=== PATIENT | female | born 1965 | race Caucasian/White ===

== ENCOUNTER 2016-07-31 03:00 | Emergency (ER) | payer OTHER ==
--- NOTE | 2016-07-31 05:30 | ED ORDER SUMMARY ---
..... Patient: TAMIKO JOHANSEN OrderSheet [facility] VisitID: [id number] [place] [address] 51y, F Registration Date/Time: 07/31/2016 ORDER SHEET Weight: 61.2 kg (stated) Allergies: No Known Drug Allergy GENERAL ORDERS: CT Abd/Pel w Cont (No) (N/A) Urgent (03:33 07/31/2016 Lulu Randolph) (Ack 3:35 Brandi ER Probate Paralegal) (4:25 Justin) CBC w Diff Urgent (03:07/31/2016 Lulu Randolph) (Ack 3:35 Brandi ER Probate Paralegal) (3:45 JBullard R.N.) CMP Urgent (03:07/31/2016 Lulu Randolph) (Ack 3:35 Brandi ER Probate Paralegal) (3:45 Albertoard R.N.) UA-Culture if indicated Urgent (03:07/31/2016 Lulu Randolph) (Ack 3:35 Brandi ER Probate Paralegal) (3:45 JBullard R.N.) Lipase Urgent (03:07/31/2016 Lulu Randolph) (Ack 3:35 Brandi ER Probate Paralegal) (3:45 JBullard R.N.) Urine Urgent (03:07/31/2016 Lulu Randolph) (Ack 3:35 Brandi ER Probate Paralegal) (3:45 JBullard R.N.) MEDICATION ORDERS: IV FLUIDS: Zofran IV 4 mg (NOW) (03:07/31/2016 Lulu Randolph) (3:53 JANEEullshannan R.N.) IV Saline Lock (03:07/31/2016 Lulu Randolph) (3:45 JANEEullshannan R.N.) IV NS : initial bolus 1000 mL (1000 mL/hr), then none - for X1 (NOW) (03:33 07/31/2016 Lulu Randolph) (3:52 JBullard R.N.) Morphine IV 2 mg (HIGH ALERT MEDICATION, NOW) (03:46 07/31/2016 Lulu Randolph) (3:53 JBullard R.N.) ORDER SHEET NOTES: [Electronically signed by Israel Tyler R.N. (05:49 07/31/2016)] [Electronically signed by Jama Jurado Dr. (21:43 08/06/2016)] [Electronically locked/signed by Israel Tyler R.N. (05:49 07/31/2016)]
--- NOTE | 2016-07-31 05:30 | ED NURSING NOTES ---
Clinical Report - Nurses [facility] [address] [place] [address] 07/31/2016 3:00 Patient: TAMIKO JOHANSEN TRIAGE Triage time 0308. Acuity: LEVEL 3. Chief Complaint: ABDOMINAL PAIN and NAUSEA and (back pain). --03:14 Israel Tyler R.N. 03:08 07/31/16. BP: 124/95. HR: 72. RR: 16. O2 saturation: 97%. Temp: 97 F. Pain level now 10/04. --03:14 Israel Tyler R.N. Weight: 61.2 kg stated. Height/Length: 65 inches Per Patient. BMI: 22.5. --03:13 Israel Tyler R.N. Medications None. --03:11 Israel Tyler R.N. Allergies No Known Drug Allergy. --03:11 Israel Tyler R.N. History Arrived by private vehicle. Historian: patient. Onset. (tuesday evening). She has had nausea. ( last bm tue). Last oral intake by patient was (just prior to arrival). 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 PAST MEDICAL HX: Last normal menstrual period- October. FALL RISK ASSESSMENT: Fall risk assessment completed. No fall risk identified. NUTRITIONAL RISK ASSESSMENT: The nutritional risk assessment revealed no deficiencies. FUNCTIONAL ASSESSMENT: Functional assessment: no impairments noted. LEARNING NEEDS ASSESSMENT: The learning needs assessment revealed no barriers. SKIN INTEGRITY ASSESSMENT: Skin integrity risk assessment completed. No skin integrity risk identified. --03:14 Israel Tyler R.N. PROBLEMS: Degenerative disk disease. Back Pain. Anemia. Vertigo. Paresthesia. Syncope. Immunizations. LNMP - Last Normal Menstrual Period. Pulmonary Embolism. --03:11 Israel Tyler R.N. ADDITIONAL SURGERIES: Neck Surgery. Tonsillectomy. --03:11 Israel Tyler R.N. Interventions ID band on patient. --03:14 Israel Tyler R.N. PHYSICAL ASSESSMENT Ambulatory to room. GENERAL / NEURO / PSYCH: Alert. Oriented X 4. Appears in no acute distress. HEENT: Mucous membranes are pink. RESPIRATORY: Respirations not labored. Breath sounds within normal limits. CVS: Normal sinus rhythm noted. Capillary refill less than 2 seconds. GI / : Abdomen soft. SKIN: Skin is warm and dry. --03:15 Israel Tyler R.N. NURSING PROGRESS NOTES Head of bed elevated. Reassurance given. Patient identifiers checked. Call light placed in reach. Bed placed in lowest position. Brakes of bed on. --03:15 Israel Tyler R.N. 03:45 07/31/2016 Site #1 started via IV in the right forearm with an 20g angiocath; two attempts. Blood drawn: rainbow set. Labeled in the presence of the patient and sent to the lab. Saline lock flushed with saline. --03:45 Israel Tyler R.N. 03:52 07/31/2016 Started bag #1 1000 mL IV Fluids IV NS (Saline); bolus of 1000 mL wide open via site #1. Allergies verified and confirmed 5 rights. IV patency established. IV site checked: no pain, redness, or swelling. IV flushed thoroughly pre- and post-medication administration. --03:52 Israel Tyler R.N. 03:53 07/31/2016 Morphine IVP 2 mg given. via site #1. 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 IV patency established. IV site checked: no pain, redness, or swelling. IV flushed thoroughly pre- and post-medication administration. --03:53 Israel Tyler R.N. 03:53 07/31/2016 Zofran (Ondansetron HCl) IVP 4 mg given. via site #1. Allergies verified and confirmed 5 rights. IV patency established. IV site checked: no pain, redness, or swelling. IV flushed thoroughly pre- and post-medication administration. --03:53 Israel Tyler R.N. DISPOSITION / DISCHARGE Departure time: 0540. No learning barriers present. Discharge instructions provided and reviewed with the patient and spouse. Reviewed warnings. Reviewed medication(s). Treatments reviewed. Reviewed referrals. Patient and spouse verbalized understanding. Written instructions provided in Burundian. The patient was discharged by the physician. She was discharged home and accompanied by spouse. She left the Emergency Department ambulatory and via private vehicle. Spouse driving. --05:48 Israel Tyler R.N. 05:48 07/31/16. BP: 124/94. HR: 77. RR: 14. O2 saturation: 98%. Temp: 98 F. Pain level now 09/03. --05:48 Israel Tyler R.N. Condition at departure: improved. --05:49 Israel Tyler R.N. Locked/Released at 07/31/2016 5:49 by Israel Tyler R.N.
--- NOTE | 2016-07-31 05:30 | ED NURSING NOTES ---
Clinical Report - Nurses [facility] [address] [place] [address] 07/31/2016 3:00 Patient: TAMIKO JOHANSEN TRIAGE Triage time 0308. Acuity: LEVEL 3. Chief Complaint: ABDOMINAL PAIN and NAUSEA and (back pain). --03:14 Israel Tyler R.N. 03:08 07/31/16. BP: 124/95. HR: 72. RR: 16. O2 saturation: 97%. Temp: 97 F. Pain level now 10/04. --03:14 Israel Tyler R.N. Weight: 61.2 kg stated. Height/Length: 65 inches Per Patient. BMI: 22.5. --03:13 Israel Tyler R.N. Medications None. --03:11 Israel Tyler R.N. Allergies No Known Drug Allergy. --03:11 Israel Tyler R.N. History Arrived by private vehicle. Historian: patient. Onset. (tuesday evening). She has had nausea. ( last bm tue). Last oral intake by patient was (just prior to arrival). 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 PAST MEDICAL HX: Last normal menstrual period- October. FALL RISK ASSESSMENT: Fall risk assessment completed. No fall risk identified. NUTRITIONAL RISK ASSESSMENT: The nutritional risk assessment revealed no deficiencies. FUNCTIONAL ASSESSMENT: Functional assessment: no impairments noted. LEARNING NEEDS ASSESSMENT: The learning needs assessment revealed no barriers. SKIN INTEGRITY ASSESSMENT: Skin integrity risk assessment completed. No skin integrity risk identified. --03:14 Israel Tyler R.N. PROBLEMS: Degenerative disk disease. Back Pain. Anemia. Vertigo. Paresthesia. Syncope. Immunizations. LNMP - Last Normal Menstrual Period. Pulmonary Embolism. --03:11 Israel Tyler R.N. ADDITIONAL SURGERIES: Neck Surgery. Tonsillectomy. --03:11 Israel Tyler R.N. Interventions ID band on patient. --03:14 Israel Tyler R.N. PHYSICAL ASSESSMENT Ambulatory to room. GENERAL / NEURO / PSYCH: Alert. Oriented X 4. Appears in no acute distress. HEENT: Mucous membranes are pink. RESPIRATORY: Respirations not labored. Breath sounds within normal limits. CVS: Normal sinus rhythm noted. Capillary refill less than 2 seconds. GI / : Abdomen soft. SKIN: Skin is warm and dry. --03:15 Israel Tyler R.N. NURSING PROGRESS NOTES Head of bed elevated. Reassurance given. Patient identifiers checked. Call light placed in reach. Bed placed in lowest position. Brakes of bed on. --03:15 Israel Tyler R.N. 03:45 07/31/2016 Site #1 started via IV in the right forearm with an 20g angiocath; two attempts. Blood drawn: rainbow set. Labeled in the presence of the patient and sent to the lab. Saline lock flushed with saline. --03:45 Israel Tyler R.N. 03:52 07/31/2016 Started bag #1 1000 mL IV Fluids IV NS (Saline); bolus of 1000 mL wide open via site #1. Allergies verified and confirmed 5 rights. IV patency established. IV site checked: no pain, redness, or swelling. IV flushed thoroughly pre- and post-medication administration. --03:52 Israel Tyler R.N. 03:53 07/31/2016 Morphine IVP 2 mg given. via site #1. 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 IV patency established. IV site checked: no pain, redness, or swelling. IV flushed thoroughly pre- and post-medication administration. --03:53 Israel Tyler R.N. 03:53 07/31/2016 Zofran (Ondansetron HCl) IVP 4 mg given. via site #1. Allergies verified and confirmed 5 rights. IV patency established. IV site checked: no pain, redness, or swelling. IV flushed thoroughly pre- and post-medication administration. --03:53 Israel Tyler R.N. DISPOSITION / DISCHARGE Departure time: 0540. No learning barriers present. Discharge instructions provided and reviewed with the patient and spouse. Reviewed warnings. Reviewed medication(s). Treatments reviewed. Reviewed referrals. Patient and spouse verbalized understanding. Written instructions provided in Barbadian. The patient was discharged by the physician. She was discharged home and accompanied by spouse. She left the Emergency Department ambulatory and via private vehicle. Spouse driving. --05:48 Israel Tyler R.N. 05:48 07/31/16. BP: 124/94. HR: 77. RR: 14. O2 saturation: 98%. Temp: 98 F. Pain level now 09/03. --05:48 Israel Tyler R.N. Condition at departure: improved. --05:49 Israel Tyler R.N. Locked/Released at 07/31/2016 5:49 by Israel Tyler R.N.
--- NOTE | 2016-07-31 05:30 | ED ORDER SUMMARY ---
..... Patient: TAMIKO JOHANSEN OrderSheet [facility] VisitID: [id number] [place] [address] 51y, F Registration Date/Time: 07/31/2016 ORDER SHEET Weight: 61.2 kg (stated) Allergies: No Known Drug Allergy GENERAL ORDERS: CT Abd/Pel w Cont (No) (N/A) Urgent (03:33 07/31/2016 Lulu Randolph) (Ack 3:35 Branid ER Gear Cutting Machine Operator) (4:25 Justin) CBC w Diff Urgent (03:07/31/2016 Lulu Randolph) (Ack 3:35 Brandi ER Gear Cutting Machine Operator) (3:45 JBullard R.N.) CMP Urgent (03:07/31/2016 Lulu Randolph) (Ack 3:35 Brandi ER Gear Cutting Machine Operator) (3:45 Albertoard R.N.) UA-Culture if indicated Urgent (03:07/31/2016 Lulu Randolph) (Ack 3:35 Brandi ER Gear Cutting Machine Operator) (3:45 JBullard R.N.) Lipase Urgent (03:07/31/2016 Lulu Randolph) (Ack 3:35 Brandi ER Gear Cutting Machine Operator) (3:45 JBullard R.N.) Urine Urgent (03:07/31/2016 Lulu Randolph) (Ack 3:35 Brandi ER Gear Cutting Machine Operator) (3:45 JBullard R.N.) MEDICATION ORDERS: IV FLUIDS: Zofran IV 4 mg (NOW) (03:07/31/2016 Lulu Randolph) (3:53 JANEEullshannan R.N.) IV Saline Lock (03:07/31/2016 Lulu Randolph) (3:45 JANEEullshannan R.N.) IV NS : initial bolus 1000 mL (1000 mL/hr), then none - for X1 (NOW) (03:33 07/31/2016 Lulu Randolph) (3:52 JBullard R.N.) Morphine IV 2 mg (HIGH ALERT MEDICATION, NOW) (03:46 07/31/2016 Lulu Randolph) (3:53 JBullard R.N.) ORDER SHEET NOTES: [Electronically signed by Israel Tyler R.N. (05:49 07/31/2016)] [Electronically signed by Jama Jurado Dr. (21:43 08/06/2016)] [Electronically locked/signed by Israel Tyler R.N. (05:49 07/31/2016)]
--- NOTE | 2016-07-31 05:30 | ED CLINICAL REPORT ---
Clinical Report - Physicians/Mid Levels [facility] [address] [place] [address] 07/31/2016 3:00 Patient: TAMIOK JOHANSEN Arrived- By private vehicle. Historian- patient. HISTORY OF PRESENT ILLNESS Chief Complaint: ABDOMINAL PAIN. This started past few days and is still present (staying the same). It was abrupt in onset and has been waxing/waning but is not gone now. At its maximum, severity described as moderate. When seen in the E.D., severity described as moderate. Modifying factors- worsened by movement. Relieved by rest. It is described as sharp and cramping and it is described as located in the right lower quadrant and radiating to the low back. The patient has had nausea and vomiting. No loss of appetite or diarrhea. No additional abdominal pain. (reports no abnormal discharge, rashes, or lesions.). No recent travel. Similar symptoms previously: None. Recent medical care: Not recently seen/assessed. REVIEW OF SYSTEMS Last normal menstrual period- several months ago. Not sure if she is going through menopause. No black stools, bloody stools or fever. All systems otherwise negative, except as recorded above. PAST HISTORY See nurses notes. Medications: None. Allergies: No Known Drug Allergy. SOCIAL HISTORY Never smoker. No alcohol use or drug use. No recent travel. Is a local resident. FAMILY HISTORY Negative. ADDITIONAL NOTES The nursing notes have been reviewed. PHYSICAL EXAM Vital Signs: 07/31/2016 03:08 BP: 124/95. HR: 72. RR: 16. O2 saturation: 97%. Temp: 97 F. Hypertensive. Oxygen saturation normal. Appearance: Alert. Oriented X3. No acute distress. CVS: Normal heart rate and rhythm. Heart sounds normal. Pulses normal. Respiratory: No respiratory distress. Breath sounds normal. Chest nontender. Abdomen: Soft and nontender. Bowel sounds normal. No organomegaly. No mass. Back: Normal inspection. Skin: Skin warm and dry. Normal skin color. No rash. Normal skin turgor. Extremities: Extremities exhibit normal ROM. No lower extremity edema. Neuro: Oriented X 3. No motor deficit. No sensory deficit. Reflexes normal. LABS, X-RAYS, AND EKG Abdominal CT: no appendicitis. right ovarian cyst. negative exam. Study type: abdomen and pelvis. Abdominal CT performed with IV contrast. The study was independently viewed by me and interpreted by the radiologist. The study was discussed with the radiologist (via fax). Laboratory Tests: UA-Culture if indicated: (SALEEM: 07/31/2016 03:30) ( [facility] 07/31/2016 03:53) Final results Test Result Flag Units (Reference) URINE COLOR YELLOW URINE APPEARANCE CLEAR URINE GLUCOSE NEGATIVE (NEGATIVE) URINE BILIRUBIN NEGATIVE (NEGATIVE) URINE KETONE NEGATIVE (NEGATIVE) URINE SPECIFIC GRAVITY <= 1.005 L (1.010-1.030) URINE PH 6.0 (5.0-8.0) URINE PROTEIN NEGATIVE (NEGATIVE) URINE UROBILINOGEN 0.2 EU/dL (0.2-1.0) URINE NITRITE NEGATIVE (NEGATIVE) URINE BLOOD NEGATIVE (NEGATIVE) URINE LEUK ESTERASE NEGATIVE (NEGATIVE) URINE RBC 0-1 rbc/hpf (0-1) URINE WBC 0-1 wbc/hpf (0-1) URINE EPITHELIAL CELLS 0-1 EPI/hpf (0-5) URINE BACTERIA NONE SEEN (NONE SEEN) URINE COMMENT CULT NOT INDICATED URINE CULTURES ARE SET-UP BASED ON THE FOLLOWING CRITERIA:POSITIVE NITRITEPOSITIVE LEUKOCYTE ESTERASEGREATER THAN 10 WHITE BLOOD CELLSMODERATE (2+) OR GREATER BACTERIA Urine: (SALEEM: 07/31/2016 03:30) ( [facility] 07/31/2016 03:53) Final results Test Result Flag Units (Reference) URINE NEGATIVE CBC w Diff: (SALEEM: 07/31/2016 03:30) ( [facility] 07/31/2016 03:53) Final results Test Result Flag Units (Reference) WHITE BLOOD COUNT 6.4 K/uL (4.5-11.5) RED BLOOD COUNT 4.29 M/uL (4.00-5.20) HEMOGLOBIN 11.8 L gm/dL (12.0-16.0) HEMATOCRIT 36.1 % (36.0-46.0) MEAN CELL VOLUME 84 fL (80-100) MEAN CORPUSCULAR HGB 28 pg (26-34) MEAN CORPUSCULAR HGB CONC 33 g/dL (31-37) RED CELL DISTRIBUTION WIDTH 12.9 % (11.6-14.8) PLATELET COUNT 236 K/uL (150-400) NEUTROPHIL % 51.7 % (50-75) LYMPH % 35.7 % (25-40) MONO % 9.8 % (3-14) EOSINOPHIL % 2.2 % (0-4) BASOPHIL % 0.6 % (0-2) CMP: (SALEEM: 07/31/2016 03:30) ( [facility] 07/31/2016 04:02) Final results Test Result Flag Units (Reference) GLUCOSE 119 H mg/dL (70-110) BUN 6 L mg/dL (7-18) CREATININE 0.7 mg/dL (0.6-1.3) Estimated GFR >60 mL/min Estimated GFR- >60 mL/min Note: Persistent reduction over 3 months in eGFR<60 mL/min/1.73 m2 defines CKD. Patients with eGFR values>=60 mL/min/1.73 m2 may also have CKD if evidence ofpersistent proteinuria. Additional information may be foundat www.kidney.org. SODIUM 142 mmol/L (136-145) POTASSIUM 3.8 mmol/L (3.5-5.1) CHLORIDE 106 mmol/L (98-107) CARBON DIOXIDE 23 mmol/L (21-32) CALCIUM 8.5 mg/dL (8.5-10.1) TOTAL PROTEIN 6.6 g/dL (6.4-8.2) ALBUMIN 3.4 g/dL (3.3-5.0) BILIRUBIN, TOTAL 0.4 mg/dL (0.0-1.0) ALKALINE PHOSPHATASE 79 U/L (46-116) AST (SGOT) 24 U/L (15-37) ALT (SGPT) 31 U/L (12-78) LIPASE 94 U/L (73-393) . PROGRESS AND PROCEDURES Course of Care: The yara is a pleasant 51 yo female who presents for evaluation fo right lower quadrant abdominal pain. DDx includes appy, ectopic , renal colic, or UTI. Exam is reassuring. Will order CT of the abdomen and pelvis for appy eval. Patient initially declined offers of pain medication however asked RN when she changed her mind. Patient Agreeable to the treatment and plan. Work up does not show any acute abnormalities. UA does not show signs of UTI, liver enzymes and lipase normal, test in negative. Patient does have a ovarian cyst on the right. Does not appear to be enlarged. DO not fee this is torsion. Patient is also not in a significant amount of pain and feels much better. Dicussed with patient work up and need of MINE TECHNICIAN follow up for the cyst, diagnosis, home care, follow up, and return precautions. All questions answered. patient expressed understanding of these instructions and was agreeable to them. Patients repeat exam continues to be reassuring. Appy precautions provided. All questions answered. Patient expressed understanding of these instructions and was agreeable to them. Patient evaluated prior to discharge. Continues to be doing well. Exam reassuring. Disposition: Discharged. Condition: good. CLINICAL IMPRESSION Acute right lower quadrant abdominal pain. 07/31/2016 03:08 BP: 124/95. HR: 72. RR: 16. O2 saturation: 97%. Temp: 97 F. Blood pressure normal. Oxygen saturation normal. Single simple right ovarian cyst. Essential hypertension. INSTRUCTIONS Warnings: GENERAL WARNINGS: Return or contact your physician immediately if your condition worsens or changes unexpectedly, if not improving as expected, or if other problems arise. SPECIFICALLY, return if you develop pain in the abdomen, fever, vomiting, the inability to keep fluids down, blood in vomitus, blood in diarrhea, fainting or lightheadedness. Your Current Medications: CONTINUE TAKING THE FOLLOWING MEDICATIONS: None*. Prescription Medications: Zofran (orally disintegrating tablets) 4 mg: take 1 orally every 8 hours as needed for nausea and vomiting. Dispense ten (10). No refill. Substitution is permissible. Motrin 600 mg tablets: take 1 tablet orally every 6 hours as needed for pain, stiffness or swelling. Dispense thirty (30). No refill. Substitution is permissible. Zahl 5 mg / 325 mg tablets: take 1 orally every 6 hours as needed for pain. Dispense ten (10). No refill. Substitution is permissible. Follow-up: Return to the emergency department as needed. Follow up with your doctor in three days. Reason for referral: recheck today's concerns. Summary of care provided to patient via paper. Screening today revealed the patient's blood pressure to be in the hypertensive range. The patient should follow up with a primary care provider for blood pressure management. Understanding of the discharge instructions verbalized by patient. (Electronically signed by Jama Jurado Dr. 08/06/2016 21:43)
--- NOTE | 2016-07-31 09:27 | DIAGNOSTIC IMAGING REPORT ---
PROCEDURE: CT ABD/PELVIS WITH CONTRAST CLINICAL INDICATION: Right lower quadrant pain, initial encounter TECHNIQUE: 100 ml of Isovue 300 were injected intravenously and axial images were obtained of the entire abdomen and pelvis with sagittal and coronal reformations. COMPARISON: None. FINDINGS: ABDOMEN: Lung base are clear. Heart size is normal. Liver, gallbladder, pancreas, spleen, adrenal glands, kidneys and abdominal aorta are normal. Moderate stool. PELVIS: 2 cm right ovarian cyst. Uterus and bladder are normal. Appendix not visualized but no evidence of acute appendicitis. Moderate L5-S1 disc space narrowing. IMPRESSION: 1. Moderate stool 2. 2 cm right ovarian cyst 3. Preliminary results submitted by Dr. Augustin, [facility] radiology. All CT scans at this facility use dose modulation, iterative reconstruction, and/or weight-based dosing when appropriate to reduce radiation dose to as low as reasonably achievable.
--- NOTE | 2016-07-31 09:27 | DIAGNOSTIC IMAGING REPORT ---
PROCEDURE: CT ABD/PELVIS WITH CONTRAST CLINICAL INDICATION: Right lower quadrant pain, initial encounter TECHNIQUE: 100 ml of Isovue 300 were injected intravenously and axial images were obtained of the entire abdomen and pelvis with sagittal and coronal reformations. COMPARISON: None. FINDINGS: ABDOMEN: Lung base are clear. Heart size is normal. Liver, gallbladder, pancreas, spleen, adrenal glands, kidneys and abdominal aorta are normal. Moderate stool. PELVIS: 2 cm right ovarian cyst. Uterus and bladder are normal. Appendix not visualized but no evidence of acute appendicitis. Moderate L5-S1 disc space narrowing. IMPRESSION: 1. Moderate stool 2. 2 cm right ovarian cyst 3. Preliminary results submitted by Dr. Augustin, [facility] radiology. All CT scans at this facility use dose modulation, iterative reconstruction, and/or weight-based dosing when appropriate to reduce radiation dose to as low as reasonably achievable.
--- NOTE | 2016-08-06 21:43 | ED MAR SUMMARY ---
..... Medication Administration Record [facility] [address] [place] [address] Patient: TAMIKO JOHANSEN Visit ID: [id number] 51y, F Weight: 61.2 kg Height/Length: 65 in BMI: 22.5 ALLERGIES: No Known Drug Allergy Start 03:52 07/31/2016 Israel Tyler R.N. Medication Administered: IV NS (SALINE), Dose: IV Fluids, Bolus: 1000 mL wide open, Dispensed: 1000 mL bag, Site: #1 right forearm. Medication Ordered: IV NS : initial bolus 1000 mL (1000 mL/hr), then none - for X1 (NOW). Given 03:53 07/31/2016 Israel Tyler R.N. Medication Administered: MORPHINE [IVP], Dose: 2 mg IVP, Site: #1 right forearm. Medication Ordered: Morphine IV 2 mg (HIGH ALERT MEDICATION, NOW). Given 03:53 07/31/2016 Israel Tyler R.N. Medication Administered: ZOFRAN [IVP] (ONDANSETRON HCL), Dose: 4 mg IVP, Site: #1 right forearm. Medication Ordered: Zofran IV 4 mg (NOW).
--- NOTE | 2016-08-06 21:43 | ED MED RECONCILIATION SUMMARY ---
Patient: TAMIKO JOHANSEN Medication Reconciliation Report [facility] VisitID: [id number] [place] [address] 51y, F Registration Date/Time: 07/31/2016 Weight: 61.2 kg Height/Length: 65 in. BMI: 22.5 ALLERGIES: No Known Drug Allergy The patient's Home Medications are listed below: NONE. The source(s) of the original Home Medication information: Not obtained. The following Medications were given to the patient in the Emergency Department: IV NS IV Fluids bolus 1000 mL wide open, administered: 07/31/2016 3:52:00 AM Morphine [IVP] IVP 2 mg, administered: 07/31/2016 3:53:00 AM Zofran [IVP] IVP 4 mg, administered: 07/31/2016 3:53:00 AM The following Medications were prescribed to the patient: Zofran (orally disintegrating tablets) 4 mg: take 1 orally every 8 hours as needed for nausea and vomiting. Dispense ten (10). No refill. Substitution is permissible. -- Jama Jurado Dr. Motrin 600 mg tablets: take 1 tablet orally every 6 hours as needed for pain, stiffness or swelling. Dispense thirty (30). No refill. Substitution is permissible. -- Jama Jurado Dr. [place] 5 mg / 325 mg tablets: take 1 orally every 6 hours as needed for pain. Dispense ten (10). No refill. Substitution is permissible. -- Jama Jurado Dr.
--- NOTE | 2016-08-06 21:43 | ED MED RECONCILIATION SUMMARY ---
Patient: TAMIKO JOHANSEN Medication Reconciliation Report [facility] VisitID: [id number] [place] [address] 51y, F Registration Date/Time: 07/31/2016 Weight: 61.2 kg Height/Length: 65 in. BMI: 22.5 ALLERGIES: No Known Drug Allergy The patient's Home Medications are listed below: NONE. The source(s) of the original Home Medication information: Not obtained. The following Medications were given to the patient in the Emergency Department: IV NS IV Fluids bolus 1000 mL wide open, administered: 07/31/2016 3:52:00 AM Morphine [IVP] IVP 2 mg, administered: 07/31/2016 3:53:00 AM Zofran [IVP] IVP 4 mg, administered: 07/31/2016 3:53:00 AM The following Medications were prescribed to the patient: Zofran (orally disintegrating tablets) 4 mg: take 1 orally every 8 hours as needed for nausea and vomiting. Dispense ten (10). No refill. Substitution is permissible. -- Jama Jurado Dr. Motrin 600 mg tablets: take 1 tablet orally every 6 hours as needed for pain, stiffness or swelling. Dispense thirty (30). No refill. Substitution is permissible. -- Jama Jurado Dr. Reeves 5 mg / 325 mg tablets: take 1 orally every 6 hours as needed for pain. Dispense ten (10). No refill. Substitution is permissible. -- Jama Jurado Dr.
--- NOTE | 2016-08-06 21:43 | ED MAR SUMMARY ---
..... Medication Administration Record [facility] [address] [place] [address] Patient: TAMIKO JOHANSEN Visit ID: [id number] 51y, F Weight: 61.2 kg Height/Length: 65 in BMI: 22.5 ALLERGIES: No Known Drug Allergy Start 03:52 07/31/2016 Israel Tyler R.N. Medication Administered: IV NS (SALINE), Dose: IV Fluids, Bolus: 1000 mL wide open, Dispensed: 1000 mL bag, Site: #1 right forearm. Medication Ordered: IV NS : initial bolus 1000 mL (1000 mL/hr), then none - for X1 (NOW). Given 03:53 07/31/2016 Israel Tyler R.N. Medication Administered: MORPHINE [IVP], Dose: 2 mg IVP, Site: #1 right forearm. Medication Ordered: Morphine IV 2 mg (HIGH ALERT MEDICATION, NOW). Given 03:53 07/31/2016 Israel Tyler R.N. Medication Administered: ZOFRAN [IVP] (ONDANSETRON HCL), Dose: 4 mg IVP, Site: #1 right forearm. Medication Ordered: Zofran IV 4 mg (NOW).
--- NOTE | 2016-08-06 21:43 | ED DISCHARGE INSTRUCTIONS ---
Patient: TAMIKO JOHANSEN General Instructions [facility] VisitID: [id number] [place] [address] 51y, F Registration Date/Time: 07/31/2016 Acute right lower quadrant abdominal pain. 07/31/2016 03:08 BP: 124/95. HR: 72. RR: 16. O2 saturation: 97%. Temp: 97 F. Blood pressure normal. Oxygen saturation normal. Single simple right ovarian cyst. Essential hypertension. INSTRUCTIONS Warnings: GENERAL WARNINGS: Return or contact your physician immediately if your condition worsens or changes unexpectedly, if not improving as expected, or if other problems arise. SPECIFICALLY, return if you develop pain in the abdomen, fever, vomiting, the inability to keep fluids down, blood in vomitus, blood in diarrhea, fainting or lightheadedness. Your Current Medications: CONTINUE TAKING THE FOLLOWING MEDICATIONS: None*. Prescription Medications: Zofran (orally disintegrating tablets) 4 mg: take 1 orally every 8 hours as needed for nausea and vomiting. Dispense ten (10). No refill. Substitution is permissible. Motrin 600 mg tablets: take 1 tablet orally every 6 hours as needed for pain, stiffness or swelling. Dispense thirty (30). No refill. Substitution is permissible. Talihina 5 mg / 325 mg tablets: take 1 orally every 6 hours as needed for pain. Dispense ten (10). No refill. Substitution is permissible. Follow-up: Return to the emergency department as needed. Follow up with your doctor in three days. Reason for referral: recheck today's concerns. Summary of care provided to patient via paper. Screening today revealed the patient's blood pressure to be in the hypertensive range. The patient should follow up with a primary care provider for blood pressure management. Understanding of the discharge instructions verbalized by patient. ADDITIONAL INFORMATION Abdominal Pain, Unknown Cause (Female) The exact cause of your abdominal (stomach) pain is not certain. This does not mean that this is something to worry about, or the right tests were not done. Everyone likes to know the exact cause of the problem, but sometimes with abdominal pain, there is no clear-cut cause, and this could be a good thing. The good news is that your symptoms can be treated, and you will feel better. Your condition does not seem serious now; however, sometimes the signs of a serious problem may take more time to appear. For this reason,it is important for you to watch for any new symptoms, problems,or worsening of your condition. Over the next few days, the abdominal pain may come and go, or be continuous. Other common symptoms can include nausea and vomiting. Sometimes it can be difficult to tell if you feel nauseous, you may just feel bad and not associate that feeling with nausea. Constipation, diarrhea, and a fever may go along with the pain. The pain may continue even if treated correctly over the following days. Depending on how things go, sometimes the cause can become clear and may require further or different treatment. Additional evaluations, medications, or tests may be needed. Home care Your health care provider may prescribe medications for pain, symptoms, or an infection. Follow the health care provider's instructions for taking these medications. General care Rest until your next exam. No strenuous activities. Try to find positions that ease discomfort. A small pillow placed on the abdomen may help relieve pain. Something warm on your abdomen (such as a heating pad) may help, but be careful not to burn yourself. Diet Do not force yourself to eat, especially if having cramps, vomiting, or diarrhea. Water is important so you do not get dehydrated. Soup may also be good. Sports drinks may also help, especially if they are not too acidic. Make sure you don't drink sugary drinks as this can make things worse. Take liquids in small amounts. Do not guzzle them. Caffeine sometimes makes the pain and cramping worse. Avoid dairy products if you have vomiting or diarrhea. Don't eat large amounts at a time. Wait a few minutes between bites. Eat a diet low in fiber (called a low-residue diet). Foods allowed include refined breads, white rice, fruit and vegetable juices without pulp, tender meats. These foods will pass more easily through the intestine. Avoid whole-grain foods, whole fruits and vegetables, meats, seeds and nuts, fried or fatty foods, dairy, alcohol and spicy foods until your symptoms go away. Follow-up care Follow up with your health care provider as instructed, or if your pain does not begin to improve in the next 24 hours. When to seek medical care Seek prompt medical care if any of the following occur: Pain gets worse or moves to the right lower abdomen New or worsening vomiting or diarrhea Swelling of the abdomen Unable to pass stool for more than three days Fever of 100.4F (38C) or higher, or as directed by your healthcare provider. Blood in vomit or bowel movements (dark red or black color) Jaundice (yellow color of eyes and skin) Weakness, dizziness Chest, arm, back, neck or jaw pain Unexpected vaginal bleeding or missed period Call 911 Call emergency services if any of the following occur: Trouble breathing Confusion Fainting or loss of consciousness Rapid heart rate Seizure Ovarian Cyst The ovary is a small organ located on each side of the uterus. During each menstrual cycle a tiny egg sac forms in the ovary. If the egg is released but does not occur, this sac usually dissolves. Sometimes, the sac may fill with fluid. It then enlarges into a painful cyst. Usually the cyst will rupture or shrink on its own. In either case, the pain gradually goes away over the next 1-3 days. If the cyst does not shrink or rupture, it may cause continued pain. Home Care: Rest in bed and avoid heavy exertion until you are feeling better. Heat to the lower abdomen usually helps (heating pad or hot packs -- a small towel soaked in hot water). You may use acetaminophen (Tylenol) or ibuprofen (Motrin, Advil) to control pain, unless another pain medicine was prescribed. [NOTE: If you have chronic liver or kidney disease or ever had a stomach ulcer or GI bleeding, talk with your doctor before using these medicines.] Follow Up: See your doctor within the next 2-3 days if your pain doesnt improve. Otherwise, follow up with your doctor after your next period or as directed by our staff. Get Prompt Medical Attention if any of the following occur: Pain worsens or fails to respond to the above measures Fever of 100.4F (38C) or higher, or as directed by your healthcare provider Heavy vaginal bleeding (soaking one pad an hour for three hours) You feel weak or dizzy Fainting Passage of a pink or garza tissue with menstrual bleeding High Blood Pressure -- To Be Confirmed [No Tx] Your blood pressure was higher today than normal. Sometimes anxiety or pain can cause a temporary rise in blood pressure that later returns to normal. If your blood pressure is high on one measurement, this does not mean that you have hypertension (a chronic illness). However, you must have your blood pressure measured again within the next few days to find out if its still high. A normal blood pressure is 120/80 or less. The first (top) number is the "systolic" pressure. The second (bottom) number is the "diastolic" pressure. Hypertension exists when either the top number is 140 or higher, OR the bottom number is 90 or higher on repeated measurements. Blood pressure in the range of 120-140 (systolic) or 80-89 (diastolic) is considered "pre-hypertension". This means your are at risk for getting hypertension. You should have regular blood pressure checks to be sure your blood pressure is not rising. Home Care: Measure your blood pressure on 3 different days and write down the results. This can be done at your doctor's office or this facility. Some pharmacies and grocery stores offer automated blood pressure machines for your use. Follow Up: If your blood pressure is "high" (over 120/80) on 2 out of 3 days, you will need to follow up with your doctor for further evaluation and treatment. DO NOT PUT THIS OFF! Untreated high blood pressure increases the risk for heart attack, also known as acute myocardial infarction, or AMI, and stroke. It is a treatable condition. Get Prompt Medical Attention if any of the following occur: Chest pain or shortness of breath Severe headache Throbbing or rushing sound in the ears Nosebleed Sudden severe abdominal pain Extreme drowsiness, confusion or fainting Dizziness or vertigo (dizziness with spinning sensation) Weakness of an arm or leg or one side of the face Difficulty with speech or vision Ondansetron Oral disintegrating tablet What is this medicine? ONDANSETRON (on FUNMI se gideon) is used to treat nausea and vomiting caused by chemotherapy. It is also used to prevent or treat nausea and vomiting after surgery. How should I use this medicine? These tablets are made to dissolve in the mouth. Do not try to push the tablet through the foil backing. With dry hands, peel away the foil backing and gently remove the tablet. Place the tablet in the mouth and allow it to dissolve, then swallow. While you may take these tablets with water, it is not necessary to do so. Talk to your adjunct trainer regarding the use of this medicine in children. Special care may be needed. What side effects may I notice from receiving this medicine? Side effects that you should report to your doctor or health wound care specialist as soon as possible: allergic reactions like skin rash, itching or hives, swelling of the face, lips, or tongue breathing problems dizziness fast or irregular heartbeat feeling faint or lightheaded, falls fever and chills swelling of the hands and feet tightness in the chest Side effects that usually do not require medical attention (report to your doctor or health wound care specialist if they continue or are bothersome): constipation or diarrhea headache What may interact with this medicine? Do not take this medicine with any of the following medications: -apomorphine -cisapride -dofetilide -dronedarone -pimozide -thioridazine -ziprasidone This medicine may also interact with the following medications: -carbamazepine -phenytoin -rifampicin -tramadol -other medicines that prolong the QT interval (cause an abnormal heart rhythm) What if I miss a dose? If you miss a dose, take it as soon as you can. If it is almost time for your next dose, take only that dose. Do not take double or extra doses. Where should I keep my medicine? Keep out of the reach of children. Store between 2 and 30 degrees C (36 and 86 degrees F). Throw away any unused medicine after the expiration date. What should I tell my health care provider before I take this medicine? They need to know if you have any of these conditions: heart disease history of irregular heartbeat liver disease low levels of magnesium or potassium in the blood an unusual or allergic reaction to ondansetron, granisetron, other medicines, foods, dyes, or preservatives or trying to get breast-feeding What should I watch for while using this medicine? Check with your doctor or health wound care specialist as soon as you can if you have any sign of an allergic reaction. Ibuprofen Oral tablet What is this medicine? IBUPROFEN (eye BYOO proe fen) is a non-steroidal anti-inflammatory drug (NSAID). It is used for dental pain, fever, headaches or migraines, osteoarthritis, rheumatoid arthritis, or painful monthly periods. It can also relieve minor aches and pains caused by a cold, flu, or sore throat. How should I use this medicine? Take this medicine by mouth with a glass of water. Follow the directions on the prescription label. Take this medicine with food if your stomach gets upset. Try to not lie down for at least 10 minutes after you take the medicine. Take your medicine at regular intervals. Do not take your medicine more often than directed. A special MedGuide will be given to you by the pharmacist with each prescription and refill. Be sure to read this information carefully each time. Talk to your adjunct trainer regarding the use of this medicine in children. Special care may be needed. What side effects may I notice from receiving this medicine? Side effects that you should report to your doctor or health wound care specialist as soon as possible: allergic reactions like skin rash, itching or hives, swelling of the face, lips, or tongue black or bloody stools, blood in the urine or in vomit breathing problems changes in vision chest pain general ill feeling or flu-like symptoms nausea or vomiting redness, blistering, peeling or loosening of the skin, including inside the mouth slurred speech or weakness on one side of the body stomach pain unexplained weight gain or swelling unusually weak or tired yellowing of eyes or skin Side effects that usually do not require medical attention (report to your doctor or health wound care specialist if they continue or are bothersome): constipation or diarrhea dizziness gas or heartburn stomach upset What may interact with this medicine? Do not take this medicine with any of the following medications: cidofovir ketorolac methotrexate pemetrexed This medicine may also interact with the following medications: alcohol aspirin diuretics lithium other drugs for inflammation like prednisone warfarin What if I miss a dose? If you miss a dose, take it as soon as you can. If it is almost time for your next dose, take only that dose. Do not take double or extra doses. Where should I keep my medicine? Keep out of the reach of children. Store at room temperature between 15 and 30 degrees C (59 and 86 degrees F). Keep container tightly closed. Throw away any unused medicine after the expiration date. What should I tell my health care provider before I take this medicine? They need to know if you have any of these conditions: asthma cigarette smoker drink more than 3 alcohol containing drinks a day heart disease or circulation problems such as heart failure or leg edema (fluid retention) high blood pressure kidney disease liver disease stomach bleeding or ulcers an unusual or allergic reaction to ibuprofen, aspirin, other NSAIDS, other medicines, foods, dyes, or preservatives or trying to get breast-feeding What should I watch for while using this medicine? Tell your doctor or healthcare professional if your symptoms do not start to get better or if they get worse. This medicine does not prevent heart attack or stroke. In fact, this medicine may increase the chance of a heart attack or stroke. The chance may increase with longer use of this medicine and in people who have heart disease. If you take aspirin to prevent heart attack or stroke, talk with your doctor or health wound care specialist. Do not take other medicines that contain aspirin, ibuprofen, or naproxen with this medicine. Side effects such as stomach upset, nausea, or ulcers may be more likely to occur. Many medicines available without a prescription should not be taken with this medicine. This medicine can cause ulcers and bleeding in the stomach and intestines at any time during treatment. Ulcers and bleeding can happen without warning symptoms and can cause . To reduce your risk, do not smoke cigarettes or drink alcohol while you are taking this medicine. You may get drowsy or dizzy. Do not drive, use machinery, or do anything that needs mental alertness until you know how this medicine affects you. Do not stand or sit up quickly, especially if you are an older patient. This reduces the risk of dizzy or fainting spells. This medicine can cause you to bleed more easily. Try to avoid damage to your teeth and gums when you brush or floss your teeth. Hydrocodone Bitartrate, Acetaminophen Oral tablet What is this medicine? ACETAMINOPHEN; HYDROCODONE (a set a KATE fran fen; gladys droe KOE done) is a pain reliever. It is used to treat mild to moderate pain. How should I use this medicine? Take this medicine by mouth. Swallow it with a full glass of water. Follow the directions on the prescription label. If the medicine upsets your stomach, take the medicine with food or milk. Do not take more than you are told to take. Talk to your adjunct trainer regarding the use of this medicine in children. This medicine is not approved for use in children. What side effects may I notice from receiving this medicine? Side effects that you should report to your doctor or health wound care specialist as soon as possible: allergic reactions like skin rash, itching or hives, swelling of the face, lips, or tongue breathing problems confusion feeling faint or lightheaded, falls stomach pain yellowing of the eyes or skin Side effects that usually do not require medical attention (report to your doctor or health wound care specialist if they continue or are bothersome): nausea, vomiting stomach upset What may interact with this medicine? alcohol antihistamines isoniazid medicines for depression, anxiety, or psychotic disturbances medicines for sleep muscle relaxants naltrexone narcotic medicines (opiates) for pain phenobarbital ritonavir tramadol What if I miss a dose? If you miss a dose, take it as soon as you can. If it is almost time for your next dose, take only that dose. Do not take double or extra doses. Where should I keep my medicine? Keep out of the reach of children. This medicine can be abused. Keep your medicine in a safe place to protect it from theft. Do not share this medicine with anyone. Selling or giving away this medicine is dangerous and against the law. Store at room temperature between 15 and 30 degrees C (59 and 86 degrees F). Protect from light. Keep container tightly closed. Throw away any unused medicine after the expiration date. Discard unused medicine and used packaging carefully. Pets and children can be harmed if they find used or lost packages. What should I tell my health care provider before I take this medicine? They need to know if you have any of these conditions: brain tumor Crohn's disease, inflammatory bowel disease, or ulcerative colitis drink more than 3 alcohol-containing drinks per day drug abuse or addiction head injury heart or circulation problems kidney disease or problems going to the bathroom liver disease lung disease, asthma, or breathing problems an unusual or allergic reaction to acetaminophen, hydrocodone, other opioid analgesics, other medicines, foods, dyes, or preservatives or trying to get breast-feeding What should I watch for while using this medicine? Tell your doctor or health wound care specialist if your pain does not go away, if it gets worse, or if you have new or a different type of pain. You may develop tolerance to the medicine. Tolerance means that you will need a higher dose of the medicine for pain relief. Tolerance is normal and is expected if you take the medicine for a long time. Do not suddenly stop taking your medicine because you may develop a severe reaction. Your body becomes used to the medicine. This does NOT mean you are addicted. Addiction is a behavior related to getting and using a drug for a non-medical reason. If you have pain, you have a medical reason to take pain medicine. Your doctor will tell you how much medicine to take. If your doctor wants you to stop the medicine, the dose will be slowly lowered over time to avoid any side effects. You may get drowsy or dizzy when you first start taking the medicine or change doses. Do not drive, use machinery, or do anything that may be dangerous until you know how the medicine affects you. Stand or sit up slowly. There are different types of narcotic medicines (opiates) for pain. If you take more than one type at the same time, you may have more side effects. Give your health care provider a list of all medicines you use. Your doctor will tell you how much medicine to take. Do not take more medicine than directed. Call emergency for help if you have problems breathing. The medicine will cause constipation. Try to have a bowel movement at least every 2 to 3 days. If you do not have a bowel movement for 3 days, call your doctor or health wound care specialist. Too much acetaminophen can be very dangerous. Do not take Tylenol (acetaminophen) or medicines that contain acetaminophen with this medicine. Many non-prescription medicines contain acetaminophen. Always read the labels carefully. You have been given the following additional information: Abdominal Pain, Unknown Cause, (Female) Ovarian Cyst Hypertension, To Be Confirmed Ondansetron Oral disintegrating tablet Ibuprofen Oral tablet Hydrocodone Bitartrate, Acetaminophen Oral tablet (Electronically signed by Jama Jurado Dr. 08/06/2016 21:43)
== END 2016-07-31 05:43 | disposition home or self-care (01) ==
LOC: ED SRH 03:00
DX: R10.31 Right lower quadrant pain (principal); N83.291 Other ovarian cyst, right side; I10 Essential (primary) hypertension
CPT/HCPCS: 90004; 90100; 92235; 93070; 95059